=== PATIENT | female | born 1965 | race Caucasian/White ===

== ENCOUNTER 2018-09-09 16:00 | Emergency (ER) | payer OTHER ==
[~2018-09-09] VITALS: Ht 160 cm; Wt 83.9 kg
[~2018-09-09 16:00] MED LIST: NAPROSYN500 MG PO; PERCOCET 5-3251 EACH PO; SYNTHROID50 MCG PO
[2018-09-09 17:32] LABS: BASOPHILS 1.4 % (0.0-2.0); HEMATOCRIT 40.4 % (37.0-47.0); HEMOGLOBIN 14.1 gm/dL (12.0-15.0); MCH 27.1 pg (26.0-34.0); MCHC 34.9 g/dL (28.0-37.0); MCV 77.6 fL (80.0-100.0); MONOCYTES 7.4 % (1.0-8.0); PLATELET COUNT 271 thou/uL (150-400); POLYS 65.2 % (36.0-66.0); RDW 14.9 % (10.5-14.5); WBC 7.6 thou/uL (4.0-11.0)
[2018-09-09 17:41] LABS: CALCIUM 9.9 mg/dL (8.5-10.1); POTASSIUM 3.7 mmol/L (3.5-5.1)
[2018-09-09 17:46] LABS: TOTAL BILIRUBIN 0.5 mg/dL (<0.1-1.0); TOTAL PROTEIN 8.3 g/dL (6.4-8.2)
[2018-09-09 18:10] LABS: URINE BILIRUBIN NEGATIVE (Negative); URINE BLOOD TRACE (Negative); URINE CLARITY CLEAR; URINE COLOR YELLOW; URINE GLUCOSE-RANDOM* NEGATIVE (Negative); URINE KETONES NEGATIVE (Negative); URINE LEUKOCYTES-REFLEX 2+ (Negative); URINE NITRITE-REFLEX NEGATIVE (Negative); URINE PROTEIN (DIPSTICK) NEGATIVE (Negative); URINE UROBILINOGEN 0.2 E.U./dl (0.2-1.0)
[2018-09-09 18:40] LABS: BACTERIA-REFLEX 1-9 Few /HPF (None Seen); CASTS None Seen /LPF (None Seen); CRYSTALS None Seen /LPF (None Seen); SQUAMOUS 0-3 Few /LPF (0-3); URINE RBC 0-2 Rare /HPF (0-2); URINE WBC-REFLEX 6-15 Few /HPF (0-5)
[2018-09-09] MEDS ORDERED: HYDROCHLOROTH12.5 M1 PO (19:18)
[2018-09-09] MEDS ORDERED: VITAMIN D1000 UNI1 PO (19:18)
[2018-09-09] MEDS ORDERED: BENADRYL25 MG PO (19:19)
[2018-09-09] MEDS ORDERED: IBUPROFEN 600600 M1 PO (19:19)
[2018-09-09] MEDS ORDERED: NAPROSYN500 MG PO (20:05)
[2018-09-09] MEDS ORDERED: CEFDINIR300 MG PO (20:05)
[2018-09-09 20:12] VITALS: BP 133/71
--- NOTE | 2018-09-10 09:39 | EKG ---
[address] [address] ELECTROCARDIOGRAM REPORT Name: BALJINDER GRAVES Room #: [id number] Admission: 09/09/18 Attend Phys: Discharge: 09/09/18 Date of : 63 Report #: [id number] THIS REPORT FOR: //name// [facility] ED Test Date: 2018-09-09 Test Time: 16:41:04 Pat Name: BALJINDER GRAVES Department: Room: Gender: F Wire [employer]: [place] : 1965 Requested By: Godfrey Robertson Order Number: [id number] MD: Hilario Petersen Measurements Intervals [place] Rate: 79 P: -1 CO: 195 QRS: 6 QRSD: 97 T: 24 QT: 363 QTc: 417 Interpretive Statements Sinus rhythm No significant abnormality Compared to ECG 01/28/2017 15:04:44 ST (T wave) deviation no longer present Electronically Signed On 09-10-2018 9:39:40 [employer] by Hilario Petersen [email or web address] <ELECTRONICALLY SIGNED> By: Hilario Petersen MD, [facility] 09/10/18 0939 40 40 Hilario Petersen MD, [facility] /EPI
== END 2018-09-09 20:15 | disposition home or self-care (01) ==
LOC: ER 16:00
PROVIDERS: Emergency Medicine
DX: N39.0 Urinary tract infection, site not specified (principal); E05.90 Thyrotoxicosis, unspecified without thyrotoxic crisis or storm; I10 Essential (primary) hypertension